=== PATIENT | male | born 1970 | race Caucasian/White ===

== ENCOUNTER → 2019-07-09 | Outpatient (REF) | payer BC ==
[2019-07-09 13:53] LABS: COMPLEMENT C3 127 MG/DL (90-180); COMPLEMENT C4 24 MG/DL (10-40); RHEUMATOID FACTOR QUANT < 10.0 IU/ML (<15.0)
== END ==
LOC: M LAB REF 12:55
PROVIDERS: ATTEND Internal Medicine
DX: Z00.01 Encounter for general adult medical examination with abnormal findings (principal); L93.0 Discoid lupus erythematosus

== ENCOUNTER → 2020-03-23 | Outpatient (REF) | payer BC ==
[2020-03-25 08:10] LABS: LDL DIRECT 74 mg/dL (0-99)
== END ==
LOC: M LAB REF 16:51
PROVIDERS: ATTEND Internal Medicine
DX: E78.00 Pure hypercholesterolemia, unspecified (principal)

== ENCOUNTER → 2020-09-06 | Outpatient (REF) | payer BC ==
[2020-09-08 08:08] LABS: LDL DIRECT 71 mg/dL (0-99)
== END ==
LOC: M LAB REF 16:24
PROVIDERS: ATTEND Internal Medicine
DX: E11.65 Type 2 diabetes mellitus with hyperglycemia (principal); E78.00 Pure hypercholesterolemia, unspecified

== ENCOUNTER → 2022-02-28 | Outpatient (REF) | payer BC | LOC: M LAB REF 16:39 | PROVIDERS: ATTEND Internal Medicine | DX: E78.5 Hyperlipidemia, unspecified (principal) ==

== ENCOUNTER → 2022-08-18 | Outpatient (REF) | payer BC ==
[2022-08-20 08:08] LABS: LDL DIRECT 84 mg/dL (0-99)
== END ==
LOC: M LAB REF 16:58
PROVIDERS: ATTEND Internal Medicine
DX: E78.00 Pure hypercholesterolemia, unspecified (principal)

== ENCOUNTER → 2023-03-27 | Outpatient (CLI) | payer BC | LOC: M WUC 09:20 | PROVIDERS: ATTEND Internal Medicine | DX: S91.102D Unspecified open wound of left great toe without damage to nail, subsequent encounter (principal); M19.072 Primary osteoarthritis, left ankle and foot ==